=== PATIENT | female | born 1960 | race Caucasian/White ===

== ENCOUNTER 2017-11-27 11:00 | Outpatient (CLI) | payer MEDICAID | END 2017-11-27 11:30 | disposition home or self-care (01) | LOC: RT.N 11:00 | PROVIDERS: ATTEND Physician Assistant Medical | DX: I10 Essential (primary) hypertension (principal); R60.0 Localized edema; R06.09 Other forms of dyspnea; R01.1 Cardiac murmur, unspecified | CPT/HCPCS: 93005 ==

== ENCOUNTER 2017-12-02 08:00 | Outpatient (CLI) | payer MEDICAID ==
[2017-12-02 19:22] LABS: ALBUMIN 4.1 g/dL (3.2-5.5); ALBUMIN/GLOBULIN RATIO 1.2 (1.0-2.2); BILIRUBIN,TOTAL 0.5 mg/dL (0.2-1.0); CALCIUM 9.3 mg/dL (8.5-10.3); CREATININE 0.7 mg/dL (0.4-1.0); TOTAL PROTEIN 7.6 g/dL (6.7-8.2)
== END 2017-12-02 08:01 | disposition home or self-care (01) ==
LOC: LAB.N 08:00
PROVIDERS: ATTEND Specialist
DX: R06.02 Shortness of breath (principal); I10 Essential (primary) hypertension
CPT/HCPCS: 36415; 80053; 83735